=== PATIENT | female | born 1960 | race Caucasian/White ===

== ENCOUNTER 2017-04-08 22:34 | Emergency (ER) | payer BC ==
[2017-04-08 22:42] VITALS: BP 147/93
[2017-04-08] MEDS ORDERED: Ondansetron 4 MG Tab.DIS PO ONE (22:57)
[2017-04-08] MEDS ORDERED: HYDROmorphone 0.5 MG/0.5 ML Syringe IM ONE (22:58)
[2017-04-08] MEDS ORDERED: Lidocaine 1% 20 ML MDV INJECT ONE (23:12)
[2017-04-08] MEDS ORDERED: Bacitracin Oint 1 GM U/D Packet TOP ONE (23:12)
--- NOTE | 2017-04-08 23:19 | EDM.PDOC ---
[id number]: VIA ELGIN Time Seen by Provider: 04/08/17 23:14 Source of Information: Reports: Patient History Limitations: Reports: No Limitations - History of Present Illness INITIAL COMMENTS - FREE TEXT/NARRATIVE: pt was at a friends place nd the dog had been tied up. Some how the dog which was a mastiff. attacked the pt and grabved her lft arm. She ended up with multiple puncture wounds present. She has normal motion in her hand and normal feeling in her hand. She has swelling in the forearm. Duration: Hour(s): Location: Reports: Upper Extremity, Left Associated Symptoms: Reports: No Other Symptoms left forearm Pain Score (Numeric/FACES): 10 - Related Data Allergies Allergy/AdvReac Type Severity Reaction Status Date / Time codeine Allergy Mild Hives Verified 04/08/17 23:06 amoxicillin [Amoxicillin] Allergy Facial Verified 04/08/17 23:06 Swelling azithromycin Allergy Hives Verified 04/08/17 23:06 Sulfa (Sulfonamide Allergy Hives Verified 04/08/17 23:06 Antibiotics) Home Meds: Home Meds Zolpidem Tartrate [Zolpidem Tartrate] 5 mg PO BEDTIME PRN 10/18/13 [History] Omeprazole 20 mg PO DAILY 06/15/16 [History] Past Medical History HEENT History: Reports: Impaired Vision Gastrointestinal History: Reports: Cholelithiasis, GERD Genitourinary History: Reports: None 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: , 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 Musculoskeletal History: Reports: Neck Pain, Chronic, Osteoporosis Neurological History: Reports: Concussion Psychiatric History: Reports: Anxiety - Past Surgical History GI Surgical History: Reports: Cholecystectomy, Colonoscopy Female Surgical History: Reports: Hysterectomy, Tubal Ligation Neurological Surgical History: Reports: None Musculoskeletal Surgical History: Reports: Carpal Tunnel, Other (See Below) Social & Family History - Tobacco Use Smoking Status *Q: Current Every Day Smoker Years of Tobacco use: 38 Packs/Tins Daily: 0.5 Used Tobacco, but Quit: No Month Tobacco Last Used: OCT Second Hand Smoke Exposure: No - Alcohol Use Days Per Week of Alcohol Use: 0 - Recreational Drug Use Recreational Drug Use: No ED ROS GENERAL - Review of Systems Review Of Systems: See Below Constitutional: Reports: No Symptoms HEENT: Reports: No Symptoms Respiratory: Reports: No Symptoms Cardiovascular: Reports: No Symptoms Endocrine: Reports: No Symptoms GI/Abdominal: Reports: No Symptoms : Reports: No Symptoms Skin: Reports: Other ( dog bite to the left arm. ) Neurological: Reports: No Symptoms ED EXAM, ANIMAL BITE - Physical Exam Exam: See Below Text/Narrative:: pt was bite by a mastiff and has multiple puncture wounds to the left forearm. Exam Limited By: No Limitations General Appearance: Alert, Anxious Extremities: Other ( left arm is bruised and there is multiple puncture wounds to the left forearm. ) Neurological: Alert Course - Vital Signs Last Recorded V/S: Last Vital Signs Temp 36.5 C 04/09/17 00:40 Pulse 80 04/09/17 00:40 Resp 18 04/09/17 00:40 BP 147/93 H 04/09/17 00:40 Pulse Ox 98 04/09/17 00:40 - Orders/Labs/Meds Meds: Medications Discontinued Medications Generic Name Dose Route Start Last Admin Trade Name Malikq PRN Reason Stop Dose Admin Bacitracin 1 dose 04/08/17 23:12 04/08/17 23:40 Bacitracin Oint 1 Gm TOP 04/08/17 23:13 1 dose ONETIME ONE Administration Ceftriaxone Sodium 1 gm/ 0 gm 04/08/17 23:53 04/09/17 00:01 Lidocaine HCl 2.1 ml IM 04/08/17 23:54 1 inj ONETIME ONE Administration Hydromorphone HCl 0.5 mg 04/08/17 22:58 04/08/17 23:03 Dilaudid IM 04/08/17 22:59 0.5 mg ONETIME ONE Administration Lidocaine HCl 20 ml 04/08/17 23:12 04/08/17 23:40 Xylocaine 1% INJECT 04/08/17 23:13 20 ml ONETIME ONE Administration Ondansetron HCl 4 mg 04/08/17 22:57 04/08/17 23:03 Zofran Odt PO 04/08/17 22:58 4 mg ONETIME ONE Administration - Re-Assessments/Exams Free Text/Narrative Re-Assessment/Exam: 04/08/17 23:19 rocephen 1 gm im. . She was given dilaudid .5 im. She is current with her tetnus. 04/08/17 23:44 The wounds were scrubbed and irrigated. they were infiltrated with lidocaine and closed loosely with 5-0 prolene. These were left open enough to provide drainage, She is current with her tetanus. Departure - Departure Time of Disposition: 23:45 Disposition: Home, Self-Care 01 Condition: Fair Clinical Impression: Dog bite of left arm - Discharge Information Instructions: Puncture Wound, [id number], Stitches, [place], or Adhesive Wound Closure, [id number] Referrals: Clarence Hu MD [Primary Care Provider] - Forms: ED Department Discharge Care Plan Goals: Pt had several puncture wounds, If redness develops the wound should be seen tonight cool pack over the dressing to prevent swelling. norco 5/325 q6h prn for pain, clindomycin 300mg tid for 10 days. Use yogurt or probiotic while on the clindomycin. sr in 7-8 days.
[2017-04-08] MEDS ORDERED: cefTRIAXone 1 GM, Lidocaine 1% 2.1 ML IM ONE ×2 (23:53)
== END 2017-04-09 00:17 | disposition home or self-care (01) ==
LOC: JP.ED 22:34
DX: S51.852A Open bite of left forearm, initial encounter (principal); K21.9 Gastro-esophageal reflux disease without esophagitis; F41.9 Anxiety disorder, unspecified; M19.90 Unspecified osteoarthritis, unspecified site; F17.210 Nicotine dependence, cigarettes, uncomplicated; Z88.5 Allergy status to narcotic agent; Z88.1 Allergy status to other antibiotic agents; Z79.899 Other long term (current) drug therapy; Z88.2 Allergy status to sulfonamides; H54.7 Unspecified visual loss; Z90.710 Acquired absence of both cervix and uterus; Z98.890 Other specified postprocedural states; W54.0XXA Bitten by dog, initial encounter
CPT/HCPCS: 12002; 99283; A9270; J0696; J1170

== ENCOUNTER 2019-08-24 18:13 | Emergency (ER) | payer BC ==
[2019-08-24 18:31] VITALS: BP 154/73; PULSE 90
[2019-08-24] MEDS ORDERED: Ketorolac 60 MG/2 ML SDV IM ONE (18:51)
--- NOTE | 2019-08-24 18:53 | EDM.PDOC ---
ED HPI GENERAL MEDICAL PROBLEM - General Chief Complaint: Genitourinary Problem Stated Complaint: RI PAIN Time Seen by Provider: 08/24/19 18:45 Source of Information: Reports: Patient, RN Notes Reviewed History Limitations: Reports: No Limitations - History of Present Illness INITIAL COMMENTS - FREE TEXT/NARRATIVE: 58-year-old female presents to the emergency department with a complaint of right flank pain, she has no history of nephrolithiasis does have a history of pyelonephritis. States this pain has developed over the last 24 hours feels similar to her last case of pyelonephritis. She has not had any fevers no nausea or vomiting shortness of breath or chest pain no difficulty with urination right flank Pain Score (Numeric/FACES): 9 - Related Data Allergies Allergy/AdvReac Type Severity Reaction Status Date / Time codeine Allergy Mild Hives Verified 08/24/19 18:27 amoxicillin [Amoxicillin] Allergy Facial Verified 08/24/19 18:27 Swelling azithromycin Allergy Hives Verified 08/24/19 18:27 Sulfa (Sulfonamide Allergy Hives Verified 08/24/19 18:27 Antibiotics) Home Meds: Home Meds Zolpidem Tartrate 5 mg PO BEDTIME PRN 10/18/13 [History] Past Medical History HEENT History: Reports: Impaired Vision Cardiovascular History: Reports: Hypertension Gastrointestinal History: Reports: Cholelithiasis, GERD 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: , 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 Musculoskeletal History: Reports: Neck Pain, Chronic, Osteoporosis Neurological History: Reports: Concussion Psychiatric History: Reports: Anxiety - Past Surgical History Cardiovascular Surgical History: Reports: None GI Surgical History: Reports: Cholecystectomy, Colonoscopy Female Surgical History: Reports: Hysterectomy, Tubal Ligation Neurological Surgical History: Reports: None Musculoskeletal Surgical History: Reports: Carpal Tunnel, Other (See Below) Social & Family History - Tobacco Use Smoking Status *Q: Current Every Day Smoker Years of Tobacco use: 30 Packs/Tins Daily: 0.5 - Recreational Drug Use Recreational Drug Use: No ED ROS GENERAL - Review of Systems Review Of Systems: See Below Constitutional: Denies: Fever, Chills HEENT: Reports: No Symptoms Respiratory: Reports: No Symptoms Cardiovascular: Reports: No Symptoms GI/Abdominal: Denies: Nausea, Vomiting : Reports: Flank Pain. Denies: Hematuria ED EXAM, RENAL/ - Physical Exam Exam: See Below Exam Limited By: No Limitations General Appearance: Alert, WD/WN, No Apparent Distress Respiratory/Chest: No Respiratory Distress, Lungs Clear, Normal Breath Sounds, No Accessory Muscle Use, Chest Non-Tender Cardiovascular: Regular Rate, Rhythm, No Murmur GI/Abdominal: Soft, Tender (Along the right flank area) Back Exam: Normal Inspection, Full Range of Motion, CVA Tenderness (R). No: CVA Tenderness (L) Course - Vital Signs Last Recorded V/S: Last Vital Signs Temp 98.8 F 08/24/19 18:29 Pulse 90 08/24/19 18:29 Resp 12 08/24/19 18:29 BP 154/73 H 08/24/19 18:29 Pulse Ox 98 08/24/19 18:29 - Orders/Labs/Meds Labs: Laboratory Tests 08/24/19 08/24/19 08/24/19 Range/Units 18:41 19:01 19:01 WBC 8.8 (4.5-11.0) K/uL RBC 4.75 (3.30-5.50) M/uL Hgb 14.4 (12.0-15.0) g/dL Hct 42.9 (36.0-48.0) % MCV 90 (80-98) fL MCH 30 (27-31) pg MCHC 34 (32-36) % Plt Count 305 (150-400) K/uL Neut % (Auto) 60 (36-66) % Lymph % (Auto) 29 (24-44) % Nicholas % (Auto) 8 H (2-6) % Eos % (Auto) 3 (2-4) % Baso % (Auto) 1 (0-1) % Sodium 138 L (140-148) mmol/L Potassium 3.8 (3.6-5.2) mmol/L Chloride 103 (100-108) mmol/L Carbon Dioxide 27 (21-32) mmol/L Anion Gap 11.8 (5.0-14.0) mmol/L BUN 15 D (7-18) mg/dL Creatinine 0.7 (0.6-1.0) mg/dL Est Cr Clr Drug Dosing 70.98 mL/min Estimated GFR (MDRD) > 60 (>60) Glucose 91 (74-106) mg/dL Lactic Acid (0.4-2.0) mmol/L Calcium 9.2 (8.5-10.1) mg/dL Total Bilirubin 0.4 (0.2-1.0) mg/dL AST 27 (15-37) U/L ALT 46 (12-78) U/L Alkaline Phosphatase 160 H (46-116) U/L C-Reactive Protein 0.22 (0.0-0.3) mg/dL Total Protein 7.0 (6.4-8.2) g/dL Albumin 3.7 (3.4-5.0) g/dL Globulin 3.3 (2.3-3.5) g/dL Albumin/Globulin Ratio 1.1 L (1.2-2.2) Urine Color Yellow (YELLOW) Urine Appearance Clear (CLEAR) Urine pH 6.0 (5.0-8.0) Ur Specific [place] 1.010 (1.008-1.030) Urine Protein Negative (NEGATIVE) mg/dL Urine Glucose (UA) Negative (NEGATIVE) mg/dL Urine Ketones Negative (NEGATIVE) mg/dL Urine Occult Blood Negative (NEGATIVE) Urine Nitrite Negative (NEGATIVE) Urine Bilirubin Negative (NEGATIVE) Urine Urobilinogen 0.2 (0.2-1.0) EU/dL Ur Leukocyte Esterase Negative (NEGATIVE) Urine RBC Not seen (0-5) Urine WBC Not seen (0-5) Ur Epithelial Cells Rare Amorphous Sediment Not seen Urine Bacteria Few Urine Mucus Not seen 08/24/19 Range/Units 19:01 WBC (4.5-11.0) K/uL RBC (3.30-5.50) M/uL Hgb (12.0-15.0) g/dL Hct (36.0-48.0) % MCV (80-98) fL MCH (27-31) pg MCHC (32-36) % Plt Count (150-400) K/uL Neut % (Auto) (36-66) % Lymph % (Auto) (24-44) % Nicholas % (Auto) (2-6) % Eos % (Auto) (2-4) % Baso % (Auto) (0-1) % Sodium (140-148) mmol/L Potassium (3.6-5.2) mmol/L Chloride (100-108) mmol/L Carbon Dioxide (21-32) mmol/L Anion Gap (5.0-14.0) mmol/L BUN (7-18) mg/dL Creatinine (0.6-1.0) mg/dL Est Cr Clr Drug Dosing mL/min Estimated GFR (MDRD) (>60) Glucose (74-106) mg/dL Lactic Acid 0.7 (0.4-2.0) mmol/L Calcium (8.5-10.1) mg/dL Total Bilirubin (0.2-1.0) mg/dL AST (15-37) U/L ALT (12-78) U/L Alkaline Phosphatase (46-116) U/L C-Reactive Protein (0.0-0.3) mg/dL Total Protein (6.4-8.2) g/dL Albumin (3.4-5.0) g/dL Globulin (2.3-3.5) g/dL Albumin/Globulin Ratio (1.2-2.2) Urine Color (YELLOW) Urine Appearance (CLEAR) Urine pH (5.0-8.0) Ur Specific Norman (1.008-1.030) Urine Protein (NEGATIVE) mg/dL Urine Glucose (UA) (NEGATIVE) mg/dL Urine Ketones (NEGATIVE) mg/dL Urine Occult Blood (NEGATIVE) Urine Nitrite (NEGATIVE) Urine Bilirubin (NEGATIVE) Urine Urobilinogen (0.2-1.0) EU/dL Ur Leukocyte Esterase (NEGATIVE) Urine RBC (0-5) Urine WBC (0-5) Ur Epithelial Cells Amorphous Sediment Urine Bacteria Urine Mucus Meds: Medications Discontinued Medications Generic Name Dose Route Start Last Admin Trade Name Freq PRN Reason Stop Dose Admin Cyclobenzaprine HCl 10 mg 08/24/19 20:09 08/24/19 20:15 Flexeril PO 08/24/19 20:10 10 mg ONETIME ONE Administration Ketorolac Tromethamine 60 mg 08/24/19 18:51 08/24/19 19:00 Toradol IM 08/24/19 18:52 60 mg ONETIME ONE Administration Departure - Departure Time of Disposition: 20:58 Disposition: Home, Self-Care 01 Condition: Fair Clinical Impression: Right flank pain - Discharge Information Referrals: Clarence Hu MD [Primary Care Provider] - Forms: ED Department Discharge Additional Instructions: Use ibuprofen or Tylenol for baseline pain control, use of Flexeril as needed for muscle spasm, please followup with your primary care provider in 2-3 days if not better, please call return to the emergency department with worsening of symptoms. - Assessment/Plan Plan: Assessment Acuity = acute Site and laterality = right flank pain Etiology = suspicious for nephrolithiasis Manifestations = none Location of injury = Home Lab values = CBC, CMP, urinalysis on Plan She had some relief from combination Toradol and Flexeril she declined CAT scan at this time would like to try Flexeril at home therefore prescription for 1 tab p.o. 3 times daily as needed total #15 she will return to the ED with worsening symptoms or follow-up with primary care in 2 to 3 days This note was dictated using [employer] voice recognition software please call with any questions on syntax or grammar.
[2019-08-24] MEDS ORDERED: Cyclobenzaprine 10 MG Tab PO ONE (20:09)
== END 2019-08-24 21:05 | disposition home or self-care (01) ==
LOC: JP.ED 18:13
DX: R10.9 Unspecified abdominal pain (principal); I10 Essential (primary) hypertension; F17.210 Nicotine dependence, cigarettes, uncomplicated; Z90.49 Acquired absence of other specified parts of digestive tract; Z88.5 Allergy status to narcotic agent; Z88.1 Allergy status to other antibiotic agents; Z88.2 Allergy status to sulfonamides
CPT/HCPCS: 36415; 80053; 81001; 83605; 85025; 86140; 96372; 99284; A9270; J1885

== ENCOUNTER 2019-08-26 01:23 | Emergency (ER) | payer BC ==
--- NOTE | 2019-08-26 01:50 | EDM.PDOC ---
ED HPI GENERAL MEDICAL PROBLEM - General Chief Complaint: Flank Pain Stated Complaint: KIDNEY STONES? Time Seen by Provider: 08/26/19 01:50 Source of Information: Reports: Patient History Limitations: Reports: No Limitations - History of Present Illness INITIAL COMMENTS - FREE TEXT/NARRATIVE: pt is having severe pain in the rt flank. She was seen sat and had a clear urine. Dr Officer thought it was possible muscle pain. Onset: Sudden, Other (pt had a sudden episode of very severe pain. ) Duration: Hour(s): Location: Reports: Abdomen, Other (this is particularly painful in the rt flank area. ) right flank Pain Score (Numeric/FACES): 8 - Related Data Allergies Allergy/AdvReac Type Severity Reaction Status Date / Time codeine Allergy Mild Hives Verified 08/26/19 01:38 amoxicillin [Amoxicillin] Allergy Facial Verified 08/26/19 01:38 Swelling azithromycin Allergy Hives Verified 08/26/19 01:38 Sulfa (Sulfonamide Allergy Hives Verified 08/26/19 01:38 Antibiotics) Home Meds: Home Meds Zolpidem Tartrate 5 mg PO BEDTIME PRN 10/18/13 [History] Cyclobenzaprine [Flexeril] 10 mg PO TID PRN 08/26/19 [History] Losartan Potassium 1 tab PO DAILY 08/26/19 [History] Past Medical History HEENT History: Reports: Impaired Vision Cardiovascular History: Reports: Hypertension Gastrointestinal History: Reports: Cholelithiasis, GERD Genitourinary History: Reports: None 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: , 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 Musculoskeletal History: Reports: Neck Pain, Chronic, Osteoporosis Neurological History: Reports: Concussion Psychiatric History: Reports: Anxiety - Past Surgical History Cardiovascular Surgical History: Reports: None GI Surgical History: Reports: Cholecystectomy, Colonoscopy Female Surgical History: Reports: Hysterectomy, Tubal Ligation Neurological Surgical History: Reports: None Musculoskeletal Surgical History: Reports: Carpal Tunnel, Other (See Below) Social & Family History - Tobacco Use Smoking Status *Q: Current Every Day Smoker Years of Tobacco use: 30 Packs/Tins Daily: 0.5 - Recreational Drug Use Recreational Drug Use: No ED ROS GENERAL - Review of Systems Review Of Systems: See Below Constitutional: Reports: No Symptoms HEENT: Reports: No Symptoms Respiratory: Reports: No Symptoms Cardiovascular: Reports: No Symptoms Endocrine: Reports: No Symptoms GI/Abdominal: Reports: Abdominal Pain, Other (rt flank pain) : Reports: Flank Pain Musculoskeletal: Reports: Other (pt is not particularly tender to palpate the area. ) ED EXAM, RENAL/ - Physical Exam Exam: See Below Text/Narrative:: pt was seen sat and worked up. She had a clear urine so she did not get a scsn. She has recurrent pain tonmight and she is very uncomfortable. Exam Limited By: No Limitations General Appearance: Alert, Moderate Distress Ears: Normal TMs Nose: Normal Inspection Throat/Mouth: Normal Inspection Head: Atraumatic Neck: Normal Inspection Respiratory/Chest: No Respiratory Distress Cardiovascular: Regular Rate, Rhythm GI/Abdominal: Soft, Non-Tender, Other (pt is not particularly guarded. and is not real tender in the flsnk area. She does appear very uncomfotable. ) (Female) Exam: Deferred Rectal (Female) Exam: Deferred Back Exam: Normal Inspection Extremities: Normal Inspection Course - Vital Signs Last Recorded V/S: Last Vital Signs Temp 36.0 C 08/26/19 01:36 Pulse 86 08/26/19 01:36 Resp 20 08/26/19 01:36 BP 167/74 H 08/26/19 01:36 Pulse Ox 98 08/26/19 01:36 - Orders/Labs/Meds Labs: Laboratory Tests 08/26/19 08/26/19 08/26/19 Range/Units 01:41 02:00 02:00 WBC 10.2 (4.5-11.0) K/uL RBC 4.99 (3.30-5.50) M/uL Hgb 15.1 H (12.0-15.0) g/dL Hct 45.1 (36.0-48.0) % MCV 90 (80-98) fL MCH 30 (27-31) pg MCHC 34 (32-36) % Plt Count 303 (150-400) K/uL Neut % (Auto) 72 H (36-66) % Lymph % (Auto) 19 L (24-44) % [place] % (Auto) 7 H (2-6) % Eos % (Auto) 2 (2-4) % Baso % (Auto) 0 (0-1) % Sodium 140 (140-148) mmol/L Potassium 4.0 (3.6-5.2) mmol/L Chloride 105 (100-108) mmol/L Carbon Dioxide 24 (21-32) mmol/L Anion Gap 10.8 (5.0-14.0) mmol/L BUN 17 (7-18) mg/dL Creatinine 0.9 (0.6-1.0) mg/dL Est Cr Clr Drug Dosing 55.20 mL/min Estimated GFR (MDRD) > 60 (>60) Glucose 111 H (74-106) mg/dL Calcium 9.2 (8.5-10.1) mg/dL Total Bilirubin 0.6 (0.2-1.0) mg/dL AST 27 (15-37) U/L ALT 46 (12-78) U/L Alkaline Phosphatase 155 H (46-116) U/L C-Reactive Protein (0.0-0.3) mg/dL Total Protein 7.0 (6.4-8.2) g/dL Albumin 3.5 (3.4-5.0) g/dL Globulin 3.5 (2.3-3.5) g/dL Albumin/Globulin Ratio 1.0 L (1.2-2.2) Urine Color Yellow (YELLOW) Urine Appearance Slightly cloudy A (CLEAR) Urine pH 5.5 (5.0-8.0) Ur Specific [place] 1.020 (1.008-1.030) Urine Protein Negative (NEGATIVE) mg/dL Urine Glucose (UA) Negative (NEGATIVE) mg/dL Urine Ketones Negative (NEGATIVE) mg/dL Urine Occult Blood Negative (NEGATIVE) Urine Nitrite Negative (NEGATIVE) Urine Bilirubin Negative (NEGATIVE) Urine Urobilinogen 0.2 (0.2-1.0) EU/dL Ur Leukocyte Esterase Negative (NEGATIVE) Urine RBC 0-5 (0-5) Urine WBC 0-5 (0-5) Ur Epithelial Cells Moderate Amorphous Sediment Not seen Urine Bacteria Few Urine Mucus Few 08/26/19 Range/Units 02:10 WBC (4.5-11.0) K/uL RBC (3.30-5.50) M/uL Hgb (12.0-15.0) g/dL Hct (36.0-48.0) % MCV (80-98) fL MCH (27-31) pg MCHC (32-36) % Plt Count (150-400) K/uL Neut % (Auto) (36-66) % Lymph % (Auto) (24-44) % [place] % (Auto) (2-6) % Eos % (Auto) (2-4) % Baso % (Auto) (0-1) % Sodium (140-148) mmol/L Potassium (3.6-5.2) mmol/L Chloride (100-108) mmol/L Carbon Dioxide (21-32) mmol/L Anion Gap (5.0-14.0) mmol/L BUN (7-18) mg/dL Creatinine (0.6-1.0) mg/dL Est Cr Clr Drug Dosing mL/min Estimated GFR (MDRD) (>60) Glucose (74-106) mg/dL Calcium (8.5-10.1) mg/dL Total Bilirubin (0.2-1.0) mg/dL AST (15-37) U/L ALT (12-78) U/L Alkaline Phosphatase (46-116) U/L C-Reactive Protein 0.27 (0.0-0.3) mg/dL Total Protein (6.4-8.2) g/dL Albumin (3.4-5.0) g/dL Globulin (2.3-3.5) g/dL Albumin/Globulin Ratio (1.2-2.2) Urine Color (YELLOW) Urine Appearance (CLEAR) Urine pH (5.0-8.0) Ur Specific [place] (1.008-1.030) Urine Protein (NEGATIVE) mg/dL Urine Glucose (UA) (NEGATIVE) mg/dL Urine Ketones (NEGATIVE) mg/dL Urine Occult Blood (NEGATIVE) Urine Nitrite (NEGATIVE) Urine Bilirubin (NEGATIVE) Urine Urobilinogen (0.2-1.0) EU/dL Ur Leukocyte Esterase (NEGATIVE) Urine RBC (0-5) Urine WBC (0-5) Ur Epithelial Cells Amorphous Sediment Urine Bacteria Urine Mucus Meds: Medications Discontinued Medications Generic Name Dose Route Start Last Admin Trade Name Freq PRN Reason Stop Dose Admin Hydromorphone HCl 0.5 mg 08/26/19 01:57 08/26/19 02:12 Dilaudid IVPUSH 08/26/19 01:58 0.5 mg ONETIME ONE Administration Sodium Chloride 1,000 mls @ 999 mls/hr 08/26/19 02:00 08/26/19 02:09 Normal Saline IV 999 mls/hr ASDIRECTED ANDIE Administration Ondansetron HCl 4 mg 08/26/19 01:57 08/26/19 02:10 Zofran IVPUSH 08/26/19 01:58 4 mg ONETIME ONE Administration - Re-Assessments/Exams Free Text/Narrative Re-Assessment/Exam: 08/26/19 03:29 urine was completely clear. Her cat scan of the abdoman did not reveal a stone present. She was found to have a benign appearing cyst on the ovary. Her appendix was normal. Her wbc was found to be normal. 08/29/19 07:16 Departure - Departure Time of Disposition: 03:32 Disposition: Home, Self-Care 01 Condition: Fair Clinical Impression: Muscle pain, Disc degeneration, lumbar, Left ovarian cyst - Discharge Information Instructions: Acute Back Pain, Adult, Degenerative Disk Disease Referrals: Clarence Hu MD [Primary Care Provider] - Forms: ED Department Discharge Care Plan Goals: moist warm packs to the area, baclofen 10 mg bid to relax muscles. norco 5/325 q6h prn for pain. pt should not work for the next 2 days.
[2019-08-26] MEDS ORDERED: HYDROmorphone 0.5 MG/0.5 ML Syringe IVPUSH ONE (01:57)
[2019-08-26] MEDS ORDERED: Ondansetron 4 MG/2 ML SDV IVPUSH ONE (01:57)
[2019-08-26] MEDS ORDERED: Sodium Chloride 0.9% 1,000 ML IV SCH (02:00)
[2019-08-26 02:07] VITALS: BP 167/74; PULSE 86
--- NOTE | 2019-08-26 02:47 | CRLCT ---
INDICATION: Severe right flank pain. COMPARISON: None available TECHNIQUE: CT examination of the abdomen and pelvis was performed without contrast enhancement using 3 mm thick axial sections from the lung bases through the pubic symphysis. Oral contrast was not administered. Please note that all CT scans at this facility use dose modulation, iterative reconstruction, and/or weight-based dosing when appropriate to reduce radiation dose to as low as reasonably achievable. FINDINGS: In the abdomen, the unenhanced liver, spleen, pancreas, and adrenals are normal in appearance. The unenhanced kidneys are normal in appearance. Clips are seen in the gall bladder fossa from cholecystectomy. The abdominal aorta is normal in caliber with no sign of dilatation. There is no sign of retroperitoneal mass or adenopathy. The stomach, loops of small bowel, and colon in the abdomen are normal in appearance. In the pelvis, the appendix is normal in appearance with no sign of inflammatory process.. The loops of small bowel and colon in the pelvis are normal in appearance. The right ovary contains a simple appearing cyst measuring 3.5 x 2.7 centimeters. The left adnexal region is normal in appearance. There are changes of hysterectomy. The urinary bladder is normal in appearance. There is no sign of pelvic or inguinal mass or adenopathy. There is no sign of any free air or free fluid in the abdomen or pelvis. The lung bases are clear. There is mild sclerosis of both sacroiliac joints from mild primary osteoarthritis. There is mild L2-3 and L3-4 disc degenerative disease. There is mild scoliosis of the lumbar spine convex towards the left. IMPRESSION: Nothing seen to explain the patient`s right flank pain. No sign of right urinary obstruction or calculi. Normal appearance of the appendix. CT of the abdomen shows changes of cholecystectomy with no sign of biliary ductal dilatation. CT of the pelvis shows a cyst in the left ovary measuring up to 3.5 centimeters in diameter. There are changes of hysterectomy. Please note that all CT scans at this facility use dose modulation, iterative reconstruction, and/or weight-based dosing when appropriate to reduce radiation dose to as low as reasonably achievable. Dictated by Alejandro Luong MD @ Aug 26 2019 2:40AM Signed by Dr. Alejandro Luong @ Aug 26 2019 2:45AM
== END 2019-08-26 03:50 | disposition home or self-care (01) ==
LOC: JP.ED 01:23
DX: M51.36 Other intervertebral disc degeneration, lumbar region (principal); N83.202 Unspecified ovarian cyst, left side; I10 Essential (primary) hypertension; F41.9 Anxiety disorder, unspecified; Z88.6 Allergy status to analgesic agent; Z88.0 Allergy status to penicillin; Z88.1 Allergy status to other antibiotic agents; Z88.2 Allergy status to sulfonamides; F17.210 Nicotine dependence, cigarettes, uncomplicated; Z79.899 Other long term (current) drug therapy
CPT/HCPCS: 36415; 74176; 80053; 81001; 85025; 86140; 96374; 96375; 99284; J1170; J2405; J7030

== ENCOUNTER 2022-10-24 08:32 | Emergency (ER) | payer BC ==
[2022-10-24] MEDS ORDERED: Ketorolac 30 MG/ML SDV IM ONE (09:01)
[2022-10-24] MEDS ORDERED: HYDROmorphone 1 MG/ML Syringe IM ONE (09:01)
[2022-10-24 09:36] VITALS: BP 151/81; PULSE 79
== END 2022-10-24 09:37 | disposition home or self-care (01) ==
LOC: JP.ED 08:32
DX: M54.50 Low back pain, unspecified (principal); I10 Essential (primary) hypertension; Z88.5 Allergy status to narcotic agent; Z88.0 Allergy status to penicillin; Z88.1 Allergy status to other antibiotic agents; Z88.2 Allergy status to sulfonamides; Z79.899 Other long term (current) drug therapy; Z90.49 Acquired absence of other specified parts of digestive tract; Z90.710 Acquired absence of both cervix and uterus; Z86.16 Personal history of COVID-19; Z72.0 Tobacco use
CPT/HCPCS: 96372; 99283; J1170; J1885

== ENCOUNTER 2024-06-10 09:36 | Emergency (ER) | payer BC ==
[2024-06-10 10:41] LABS: BASOPHILS ABSOLUTE AUTO 0.03 K/uL (0.00-0.10); BASOPHILS PERCENT AUTO 0.4 % (0.1-1.3); EOSINOPHILS ABSOLUTE AUTO 0.17 K/uL (0.00-0.40); EOSINOPHILS PERCENT AUTO 2.3 % (0.0-5.4); HEMATOCRIT 42.5 % (34.3-46.0); HEMOGLOBIN 14.9 g/dL (11.2-15.5); IMMATURE GRAN PERCENT AUTO 0.3 % (0.0-0.7); LYMPHOCYTES ABSOLUTE AUTO 2.04 K/uL (0.8-3.3); LYMPHOCYTES PERCENT AUTO 27.1 % (11.4-47.7); MEAN CORPUSCULAR HEMOGLOBIN 30.7 pg (31.6-35.5); MEAN CORPUSCULAR HGB CONC 35.1 g/dL (31.6-35.5); MEAN CORPUSCULAR VOLUME 87.6 fL (81.4-99.0); MONOCYTES ABSOLUTE AUTO 0.49 K/uL (0.20-0.90); MONOCYTES PERCENT AUTO 6.5 % (3.3-12.6); NEUTROPHILS ABSOLUTE AUTO 4.78 K/uL (1.0-7.6); NEUTROPHILS PERCENT AUTO 63.4 % (40.0-78.1); PLATELET COUNT,PLT 273 K/uL (130-375); RED BLOOD CELL COUNT 4.85 M/uL (3.77-5.24); WHITE BLOOD CELL COUNT,WBC 7.5 K/uL (3.2-11.0)
[2024-06-10 10:44] LABS: IMMATURE GRAN ABSOLUTE AUTO 0.02 K/uL (0.00-0.23)
[2024-06-10 11:02] LABS: A/G RATIO 1.2 (1.2-2.2); ALANINE AMINOTRANSFERASE,ALT 48 U/L (12-78); ALKALINE PHOSPHATASE 143 U/L (46-116); ASPARTATE AMNIOTRANSFERASE,AST 29 U/L (15-37); BILIRUBIN TOTAL 0.6 mg/dL (0.2-1.0); BLOOD UREA NITROGEN,BUN 12 mg/dL (7-18); CALCIUM 10.3 mg/dL (8.5-10.1); CARBON DIOXIDE,CO2 25 mmol/L (21-32); CHLORIDE,CL 106 mmol/L (100-108); CREATININE 0.7 mg/dL (0.6-1.0); EST CRCL DRUG DOSING (CG) 63.69 mL/min; ESTIMATED GFR 98 mL/min (>60); GLUCOSE RANDOM 105 mg/dL (74-106); POTASSIUM,K 4.2 mmol/L (3.6-5.2); PROTEIN TOTAL,TP 7.4 g/dL (6.4-8.2); SODIUM,NA 140 mmol/L (140-148); TROPONIN I HIGH SENSITIVITY 5.1 pg/mL (<=60.3)
[2024-06-10 11:03] LABS: C-REACTIVE PROTEIN < 0.50 mg/dL (<0.50)
[2024-06-10] MEDS: Ketorolac 30 MG/ML SDV IM ONE (11:28)
[2024-06-10 14:12] VITALS: BP 117/75; PULSE 82
== END 2024-06-10 14:33 | disposition home or self-care (01) ==
LOC: JP.ED 09:36
DX: M48.02 Spinal stenosis, cervical region (principal); I10 Essential (primary) hypertension; F17.210 Nicotine dependence, cigarettes, uncomplicated; Z86.16 Personal history of COVID-19; Z90.49 Acquired absence of other specified parts of digestive tract; Z90.710 Acquired absence of both cervix and uterus; Z79.899 Other long term (current) drug therapy; Z88.0 Allergy status to penicillin; Z88.1 Allergy status to other antibiotic agents; Z88.5 Allergy status to narcotic agent; Z88.2 Allergy status to sulfonamides
CPT/HCPCS: 36415; 72125; 72141; 76377; 80053; 84484; 85025; 86140; 96372; 99284; J1885

== ENCOUNTER 2025-01-25 12:56 | Emergency (ER) | payer BC ==
[2025-01-25 13:45] VITALS: BP 182/67; PULSE 79
[2025-01-25] MEDS: diphenhydrAMINE 25 MG Cap PO ONE (14:36)
== END 2025-01-25 14:47 | disposition home or self-care (01) ==
LOC: JP.ED 12:56
DX: L25.9 Unspecified contact dermatitis, unspecified cause (principal); I10 Essential (primary) hypertension; E78.00 Pure hypercholesterolemia, unspecified; I25.10 Atherosclerotic heart disease of native coronary artery without angina pectoris; Z86.16 Personal history of COVID-19; Z90.49 Acquired absence of other specified parts of digestive tract; F17.200 Nicotine dependence, unspecified, uncomplicated; Z79.899 Other long term (current) drug therapy; Z79.82 Long term (current) use of aspirin; Z88.0 Allergy status to penicillin; Z88.2 Allergy status to sulfonamides; Z88.1 Allergy status to other antibiotic agents; Z88.5 Allergy status to narcotic agent
CPT/HCPCS: 99282; A9270

== ENCOUNTER 2025-07-01 16:08 | Emergency (ER) | payer BC ==
[2025-07-01] MEDS: Dexamethasone 4 MG/ML SDV INJECT ONE (18:34)
[2025-07-01 19:10] VITALS: BP 149/66; PULSE 81
[2025-07-01] MEDS: Ketorolac 30 MG/ML SDV IM ONE (19:32)
== END 2025-07-01 20:16 | disposition home or self-care (01) ==
LOC: JP.ED 16:08
DX: M54.81 Occipital neuralgia (principal); E78.00 Pure hypercholesterolemia, unspecified; I10 Essential (primary) hypertension; I25.10 Atherosclerotic heart disease of native coronary artery without angina pectoris; Z90.49 Acquired absence of other specified parts of digestive tract; Z88.5 Allergy status to narcotic agent; Z88.8 Allergy status to other drugs, medicaments and biological substances; Z88.2 Allergy status to sulfonamides; Z79.899 Other long term (current) drug therapy; Z79.82 Long term (current) use of aspirin; Z90.710 Acquired absence of both cervix and uterus
CPT/HCPCS: 96372; 99283; J0665; J1100; J1885

== ENCOUNTER 2025-08-30 14:06 | Emergency (ER) | payer BC ==
[2025-08-30 16:57] VITALS: BP 138/63; PULSE 75
== END 2025-08-30 16:59 | disposition home or self-care (01) ==
LOC: JP.ED 14:06
DX: S10.93XA Contusion of unspecified part of neck, initial encounter (principal); M48.02 Spinal stenosis, cervical region; I25.10 Atherosclerotic heart disease of native coronary artery without angina pectoris; I10 Essential (primary) hypertension; E78.00 Pure hypercholesterolemia, unspecified; K21.9 Gastro-esophageal reflux disease without esophagitis; Z86.16 Personal history of COVID-19; Z90.710 Acquired absence of both cervix and uterus; Z79.899 Other long term (current) drug therapy; Z79.82 Long term (current) use of aspirin; Z79.02 Long term (current) use of antithrombotics/antiplatelets; Z88.1 Allergy status to other antibiotic agents; Z88.0 Allergy status to penicillin; Z88.2 Allergy status to sulfonamides; Z88.5 Allergy status to narcotic agent; W01.0XXA Fall on same level from slipping, tripping and stumbling without subsequent striking against object, initial encounter; Y92.009 Unspecified place in unspecified non-institutional (private) residence as the place of occurrence of the external cause
CPT/HCPCS: 72125; 73080; 76377; 99284; A9270

== ENCOUNTER 2025-09-01 13:09 | Emergency (ER) | payer BC ==
[2025-09-01 13:41] VITALS: BP 185/77; PULSE 96
[2025-09-01] MEDS: LORazepam 2 MG/ML SDV IVPUSH ONE (14:17)
[2025-09-01] MEDS: LORazepam 2 MG/ML SDV IM ONE (14:18)
== END 2025-09-01 14:44 | disposition home or self-care (01) ==
LOC: JP.ED 13:09
DX: F41.0 Panic disorder [episodic paroxysmal anxiety] (principal); I10 Essential (primary) hypertension; E78.00 Pure hypercholesterolemia, unspecified; I25.10 Atherosclerotic heart disease of native coronary artery without angina pectoris; K21.9 Gastro-esophageal reflux disease without esophagitis; Z86.16 Personal history of COVID-19; Z90.49 Acquired absence of other specified parts of digestive tract; Z90.710 Acquired absence of both cervix and uterus; Z87.891 Personal history of nicotine dependence; Z88.2 Allergy status to sulfonamides; Z88.0 Allergy status to penicillin; Z88.5 Allergy status to narcotic agent; Z88.1 Allergy status to other antibiotic agents; Z79.82 Long term (current) use of aspirin; Z79.899 Other long term (current) drug therapy
CPT/HCPCS: 96372; 99283; J2060